=== PATIENT | male | born 2000 | race Caucasian/White ===

== ENCOUNTER 2018-10-28 00:54 | Emergency (ER) | payer OTHER ==
--- OUTSIDE RECORDS SUMMARY | 2018-10-28 01:12 | XMS REPORT | Continuity of Care Document ---
:2000 External Reference #:[id number] Author Name Noel Varghese M.D. Address [address] [place] [address] Care Team Providers Name Role Phone Noel Varghese M.D. 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 Payers Type Date Identification Numbers Payment Provider Subscriber Effective: Policy Number: [id number] [employer] // [employer] Kumar Cummins 2007 PayID: [id number] [id number] [place] [address] Advance Directives Description No Information Available Problems Description No Active Problems Family History Date Family Member(s) Problem(s) Comments General Family history of nocturnal enuresis on both side Social History Type Date Description Comments Sex Unknown General Lives with parents and 2 sibs Tobacco Use Start: Unknown Patient has never smoked Smoking Status Reviewed: 01/17/18 Patient has never smoked Allergies, Adverse Reactions, Alerts Description No Known Drug Allergies Medications Medication Date Status Form Strength Qnty SIG Indications Ordering Provider Ventolin HFA 09/25/ Active Aerosol 108(90Base 16gm 1-2 puffs Chidi Magaña 2018 ) mcg/Act with Artemio, spacer C.P.N.P. every 4-6 hours as needed Aerochamber 09/25/ Active Misc 2units use with Chidi Magaña Plus 2018 albuterol Artemio, inhaler C.P.N.P. Augmentin 09/25/ Hx Tablets 500-125mg 20tabs 1 tablet H66.93 Roseline Magaña 2017 - by mouth Artemio, 10/05/ twice a C.P.N.P. 2018 day, x 10 days No Active 12/05/ Hx Unknown Medications 2017 - 2017 Azithromycin 01/02/ Hx Tablets 250mg 6tabs 1 tab by J06.9 Noel 2017 - mouth Shrivasta 01/07/ twice a Juany benitez 2017 day day1, 1 tab by mouth daily for day 2-5 Azithromycin 04/03/ Hx Tablets 250mg 6tabs 2 tabs by 786.2 Jeanna 2014 - mouth x 1 Royal, 04/08/ then 1 by C.P.N.P. 2014 mouth every day x 4d Benzoyl 09/23/ Hx Gel 5% 60gm apply over 706.1 Noel Peroxide 2013 - face every Shrivasta 12/05/ at night Juany benitez 2017 Doxycycline 09/23/ Hx Capsules 100mg 60caps 1 by mouth 706.1 Noel Hyclate 2013 - bid. avoid Shrivasta 10/23/ sun. Take Juany benitez 2013 after food Cefdinir 03/17/ Hx Capsules 300mg 20caps 1 bid x 10 034.0 Ender Schroeder 2013 - days Lambert, 04/03/ Juany ROBERTS 2014 Amoxicillin 01/10/ Hx Tablets 875mg 20tabs 1 tablet 382.9 Estevan 2013 - twice Sharkness 01/24/ daily for , C.P.N.P 2013 10 days Omnicef 06/15/ Hx Capsules 300mg 14caps 1 capsule 382.9 Estevan 2011 - twice Sharkness 06/22/ daily for , C.P.N.P 2011 7 days Aldara 04/10/ Hx Cream 5% QS apply over 078.0 Noel 2008 - the wart Shrivasta 04/19/ qod for 1 Juany benitez 2008 month Amoxicillin 10/10/ Hx Suspension 400mg/5 ML QS 2 tsp po 034.0 Ana 2006 - bid x 10D Shaun, 10/20/ D.O. 2006 Amoxil 06/29/ Hx Chewtabs 400mg 8units 4 tab stat Noel 2006 - with oral Shrivasta 07/13/ injury Juany benitez 2006 Patria 05/01/ Hx Chewtabs 1.1mg 90unit 1 PO qd Noel No 2007 [facility]/ Juany benitez 2017 Immunizations CPT Code Status Date Vaccine Lot # [id number] Given 10/19/2016 HPV 9 Gardasil 9 [id number] 51149 Given 08/26/2016 Meningococcal A,C,Y,W135 (Menactra) [id number] Preservative Free 12645 Given 02/01/2010 Meningococcal A,C,Y,W135 (Menactra) [id number] Preservative Free 16588 Given 02/01/2010 TdaP Immunization Age 7+ [id number] 02601 Given 01/28/2009 Varicella (Chicken Pox) Immunization 1544x 94338 Given 01/09/2008 Hepatitis A Vaccine Pediatric/Adolescent 2 [id number] Dose Schedule 46938 Given 11/03/2006 Hepatitis A Vaccine Pediatric/Adolescent 2 [id number] Dose Schedule 22141 Given 12/02/2004 Flu Vaccine Age 3+Years 97878 Given 10/04/2004 Flu Vaccine Age 3+Years 10275 Given 12/26/2002 Poliomyelitis Immunization 15411 Given 12/26/2002 DTaP Immunization under age 7 68307 Given 12/26/2002 MMR Virus Immunization 07581 Given 12/07/1999 MMR Virus Immunization 99630 Given 12/07/1999 Poliomyelitis Immunization 66287 Given 12/07/1999 Varicella (Chicken Pox) Immunization 15240 Given 06/15/1999 DTaP Immunization under age 7 19306 Given 06/15/1999 Hib/Hep B Combination Vaccine 32813 Given 04/08/1999 DTaP Immunization under age 7 08515 Given 04/08/1999 Hib Vaccine 42321 Given 04/08/1999 Poliomyelitis Immunization 17597 Given 02/01/1999 Hib/Hep B Combination Vaccine 13320 Given 02/01/1999 Poliomyelitis Immunization 70874 Given 02/01/1999 DTaP Immunization under age 7 16159 Given 1998 Hepatitis B Imm Age 0 to 19yr 28055 Refused 01/17/2018 HPV 9 Gardasil 9 56114 Refused 01/17/2018 Flu Inj Quadrivalent .5ml Preserve Free 86317 Refused 10/07/2015 HPV 9 Gardasil 9 54475 Refused 10/07/2015 Meningococcal A,C,Y,W135 (Menactra) Preservative Free 49556 Refused 09/23/2014 HPV 4 Gardasil 4 81483 Refused 09/23/2014 Flu Mist Quadrivalent 89008 Refused 07/10/2013 HPV 4 Gardasil 4 08400 Refused 03/08/2012 HPV 4 Gardasil 4 Vital Signs Date Vital Result Comment 09/25/2018 4:11pm Weight 228.00 lb Weight 103.421 kg Weight Percentile >97th Body Temperature 98.5 F Heart Rate 93 /min O2 % BldC Oximetry 97 % 01/17/2018 1:56pm Height 70.25 inches 5'10.25" Height Percentile 60 % Weight 227.00 lb Weight 102.967 kg Weight Percentile >97th Heart Rate 71 /min Respiratory Rate 12 /min BP Systolic 133 mmHg BP Diastolic 75 mmHg BMI (Body Mass Index) 32.3 kg/m2 Body Mass Index Percentile 98 % 12/05/2017 2:17pm Weight 226.00 lb Weight 102.514 kg Weight Percentile >97th Body Temperature 98.5 F 01/02/2017 4:39pm Weight 210.00 lb w/clothes/no shoes Weight 95.256 kg Weight Percentile 96th Body Temperature 97.8 F Heart Rate 75 /min BP Systolic 136 mmHg BP Diastolic 80 mmHg Blood Pressure Percentile 0 % O2 % BldC Oximetry 90 % 10/19/2016 2:57pm Height 70 inches 5'10" Height Percentile 60 % Weight 210.62 lb Weight 95.540 kg Weight Percentile 97th Heart Rate 65 /min Respiratory Rate 12 /min BP Systolic 119 mmHg BP Diastolic 68 mmHg Blood Pressure Percentile 41 % BMI (Body Mass Index) 30.2 kg/m2 Body Mass Index Percentile 97 % 10/07/2015 3:10pm Height 70.25 inches 5'10.25" Height Percentile 68 % Weight 204.00 lb Weight 92.534 kg Weight Percentile 97th Heart Rate 55 /min BP Systolic 134 mmHg BP Diastolic 72 mmHg Blood Pressure Percentile 90 % BMI (Body Mass Index) 29.1 kg/m2 Body Mass Index Percentile 96 % 04/03/2015 3:16pm Weight 196.25 lb with sneakers Weight 89.019 kg Weight Percentile 97th Body Temperature 101.2 F Ibuprofen 8am Heart Rate 87 /min O2 % BldC Oximetry 97 % 04/01/2015 9:57am Weight 193.00 lb Weight 87.545 kg Weight Percentile 96th Body Temperature 99.6 F Heart Rate 96 /min O2 % BldC Oximetry 98 % 09/23/2014 3:18pm Height 70.25 inches 5'10.25" Height Percentile 77 % Weight 183.00 lb Weight 83.009 kg Weight Percentile 95th Heart Rate 64 /min Respiratory Rate 12 /min BP Systolic 131 mmHg BP Diastolic 68 mmHg Blood Pressure Percentile 88 % BMI (Body Mass Index) 26.1 kg/m2 Body Mass Index Percentile 92 % 03/17/2014 12:34pm Weight 181.50 lb Weight 82.328 kg Weight Percentile 96th Body Temperature 97.4 F 01/10/2014 4:20pm Weight 175.00 lb Weight 79.380 kg Weight Percentile 95th Body Temperature 99.4 F 07/10/2013 3:33pm Height 69.50 inches 5'9.50" Height Percentile 87 % Weight 163.00 lb Weight 73.937 kg Weight Percentile 93rd Heart Rate 64 /min Respiratory Rate 16 /min BP Systolic 130 mmHg BP Diastolic 70 mmHg Blood Pressure Percentile 90 % BMI (Body Mass Index) 23.7 kg/m2 Body Mass Index Percentile 87 % 06/15/2012 11:03am Weight 137.00 lb Weight 62.143 kg Weight Percentile 88th Body Temperature 98.9 F Blood Pressure Percentile 0 % 03/08/2012 2:56pm Height 66.25 inches 5'6.25" Height Percentile 89 % Weight 137.00 lb Weight 62.143 kg Weight Percentile 90th Heart Rate 68 /min Respiratory Rate 17 /min BP Systolic 124 mmHg BP Diastolic 60 mmHg Blood Pressure Percentile 85 % BMI (Body Mass Index) 21.9 kg/m2 Body Mass Index Percentile 84 % 10/27/2011 1:55pm Weight 130.00 lb Weight 58.968 kg Weight Percentile 89th Body Temperature 98.6 F Blood Pressure Percentile 0 % 04/27/2011 9:39am Weight 122.00 lb Weight 55.339 kg Weight Percentile 88th Body Temperature 97.9 F Blood Pressure Percentile 0 % 02/04/2011 3:35pm Height 61.5 inches 5'1.50" Height Percentile 78 % Weight 120.00 lb Weight 54.432 kg Weight Percentile 89th Heart Rate 100 /min Respiratory Rate 16 /min BP Systolic 120 mmHg BP Diastolic 72 mmHg Blood Pressure Percentile 85 % BMI (Body Mass Index) 22.3 kg/m2 Body Mass Index Percentile 90 % 02/01/2010 2:50pm Height 59 inches 4'11" Height Percentile 78 % Weight 103.00 lb Weight 46.721 kg Weight Percentile 87th Heart Rate 70 /min BP Systolic 116 mmHg BP Diastolic 70 mmHg Blood Pressure Percentile 81 % BMI (Body Mass Index) 20.8 kg/m2 Body Mass Index Percentile 87 % 12/28/2009 12:28pm Weight 101.50 lb Weight 46.040 kg Weight Percentile 87th Body Temperature 97.7 F Blood Pressure Percentile 0 % 01/28/2009 2:58pm Height 57.25 inches 4'9.25" Height Percentile 81 % Weight 91.00 lb Weight 41.278 kg Weight Percentile 90th Heart Rate 80 /min BP Systolic 100 mmHg BP Diastolic 68 mmHg BMI (Body Mass Index) 19.5 kg/m2 Body Mass Index Percentile 90 % 01/09/2008 3:42pm Height 54.75 inches 4'6.75" Height Percentile 79 % Weight 81.00 lb Weight 36.742 kg Weight Percentile 92nd Heart Rate 68 /min BP Systolic 110 mmHg BP Diastolic 62 mmHg BMI (Body Mass Index) 19.0 kg/m2 Body Mass Index Percentile 92 % 10/10/2007 12:21pm Weight 76.00 lb Weight 34.474 kg Weight Percentile 89th Body Temperature 97.2 F 06/05/2007 3:28pm Height 53.75 inches 4'5.75" Height Percentile 83 % Weight 76.00 lb Weight 34.474 kg Weight Percentile 93rd Body Temperature 96.6 F BMI (Body Mass Index) 18.5 kg/m2 Body Mass Index Percentile 91 % 11/03/2006 3:26pm Height 52.5 inches 4'4.50" Height Percentile 84 % Weight 72.00 lb with clothes, no shoes Weight 32.659 kg Weight Percentile 94th BP Systolic 98 mmHg BP Diastolic 60 mmHg BMI (Body Mass Index) 18.4 kg/m2 Body Mass Index Percentile 93 % Results Test Date Facility Test Result H/L Range Note Laboratory test 01/17/2018 [facility] .Hemoglobin in 16.6 finding (607)- - house Laboratory test 01/02/2017 [facility] .Flu Test in neg finding (607)- - house .Strep A, Rapid neg Laboratory test 10/19/2016 In [facility] .Hemoglobin in thompson 16.6 finding (607)- - Laboratory test 10/07/2015 In [facility] .Hemoglobin in thompson 15.3 finding (607)- - Laboratory test 09/23/2014 In [facility] Hemoglobin 14.8 finding (607)- - Laboratory test 03/17/2014 In [facility] .Throat Culture Quick positive finding (607)- - Strep Laboratory test 07/10/2013 In [facility] .Hemoglobin in thompson 14.5 finding (607)- - Laboratory test 03/08/2012 In [facility] .Urine dip - see nurse neg finding (607)- - note Laboratory test 03/08/2012 In [facility] Hemoglobin 13.3 finding (607)- - Laboratory test 10/27/2011 In [facility] Throat Culture negative finding (607)- - (Overnight) Throat Culture Quick Strep neg Laboratory test finding 02/04/2011 In [facility] .Urine dip - see nurse neg (607)- - note Laboratory test finding 02/04/2011 In [facility] Hemoglobin 12.6 (607)- - Laboratory test finding 02/01/2010 In [facility] .Urine dip - see nurse neg (607)- - note Laboratory test finding 02/01/2010 In [facility] .Urine dip - see nurse neg (607)- - note Laboratory test finding 02/01/2010 In [facility] Hemoglobin 12.4 (607)- - Laboratory test finding 01/28/2009 In [facility] .Urine dip - see nurse neg (607)- - note Laboratory test finding 01/28/2009 In [facility] Hemoglobin 14.3 (607)- - Laboratory test finding 01/09/2008 In [facility] .Urine dip - see nurse neg (607)- - note Laboratory test finding 01/09/2008 In [facility] Hemoglobin 14.2 (607)- - Laboratory test finding 10/10/2007 In [facility] .Throat Culture Quick positive (607)- - Strep Laboratory test finding 11/03/2006 In [facility] Hemoglobin 12.2 (607)- - Procedures Date Code Description Status 01/15/2004 09770 Remove Impacted Cerumen with instrumentation Completed Encounters Type Date Location Provider Dx Diagnosis Office Visit 09/25/2018 [facility] Office Roseline Ulloa, H66.93 Otitis media, 4:15p C.P.N.P. unspecified, bilateral R05 Cough Office Visit 01/17/2018 2:00p [facility] Noel Varghese, Z00.01 Encounter for M.D. general adult medical exam w abnormal findings E66.9 Obesity, unspecified S43.82xA Sprain of oth parts of left shoulder girdle, init encntr Office Visit 12/05/2017 2:15p [facility] Estevan Rivers, M25.512 Pain in left C.P.N.P shoulder Office Visit 01/02/2017 4:30p [facility] Noel Varghese, J06.9 Acute upper M.D. respiratory infection, unspecified Office Visit 10/19/2016 2:45p [facility] Noel Varghese, Z00.129 Encntr for routine M.D. child health exam w/o abnormal findings L80 Vitiligo Office Visit 10/07/2015 3:00p [facility] Noel Varghese, Z00.129 Encntr for M.D. routine child health exam w/o abnormal findings Office Visit 04/03/2015 3:15p [facility] Office Jeanna Sauceda, 786.2 Cough C.P.N.P. Office Visit 04/01/2015 10:00a [facility] Jeanna Sauceda, 786.2 Cough C.P.N.P. Office Visit 09/23/2014 3:30p Main Office Noel Varghese, V20.2 Routine Infant M.D. Or Child Health Check 706.1 Acne Other 709.01 Vitiligo Office Visit 03/17/2014 12:45p Main Office Ender Mccarty, 034.0 Streptococcal Sore III, M.D. Throat Office Visit 01/10/2014 4:15p [facility] Estevan 465.9 URI Upper Silvestre, Respiratory C.P.N.P Infections Acute Unspec Sites 382.9 Otitis Media Unspec Office Visit 07/10/2013 3:30p Main Office Noel Varghese, V20.2 Routine M.D. Or Child Health Check 709.01 Vitiligo Office Visit 06/15/2012 11:15a Main Office Estevan Rivers, 465.9 URI Upper C.P.N.P Respiratory Infections Acute Unspec Sites 382.9 Otitis Media Unspec Office Visit 03/08/2012 3:00p [facility] Office Noel Varghese, V20.2 Routine M.D. Or Child Health Check 709.01 Vitiligo Office Visit 10/27/2011 2:00p [facility] Zain Butcher, 079.99 Viral Infection M.D. Unspec Office Visit 04/27/2011 9:45a [facility] Office Noel Varghese, 959.5 Injury Finger M.D. Other & Unspec Office Visit 02/04/2011 3:30p [facility] Office Noel Varghese, V20.2 Routine Or M.D. Child Health Check 008.69 Enteritis Due To Other Viral Enteritis 368.00 Amblyopia Unspec Office Visit 02/01/2010 3:00p [facility] Office Noel Varghese, V20.2 Routine Infant Or M.D. Child Health Check Office Visit 12/28/2009 12:45p [facility] Office Ender Mccarty, 787.01 Nausea W/ III, M.D. Vomiting Office Visit 04/10/2009 4:00p [facility] Office Noel Varghese, 078.0 Molluscum M.D. Contagiosum Office Visit 01/28/2009 3:00p [facility] Office Noel Varghese, V20.2 Routine Or M.D. Child Health Check 709.01 Vitiligo 788.36 Incontinence Nocturnal Enuresis Office Visit 01/09/2008 [facility] Office Noel Varghese, V20.2 Routine Infant Or 3:30p M.D. Child Health Check Office Visit 10/10/2007 [facility] Office Ana Dunn, 034.0 Streptococcal Sore 12:30p D.O. Throat Office Visit 06/05/2007 [facility] Office Ana Dunn, 709.01 Vitiligo 3:15p D.O. Office Visit 11/03/2006 [facility] Office Noel Varghese, V20.2 Routine Infant Or 3:30p M.D. Child Health Check V05.8 Single Disease Spec Other Vaccination & Inoculation Office Visit 01/26/2006 [facility] Office Noel Varghese, V20.2 Routine Infant Or 3:00p M.D. Child Health Check Office Visit 11/22/2005 [facility] Office Noel Varghese, 463 Tonsillitis Acute 9:45a M.D. Office Visit 01/17/2005 Main Office Ana Dunn, 463 Tonsillitis Acute 4:45p D.O. Office Visit 01/14/2005 Main Office Ana Dunn, 079.99 Viral Infection 12:30p D.O. Unspec Office Visit 12/30/2004 [facility] Office Noel Halima, V20.2 Routine Infant Or 3:30p M.D. Child Health Check Office Visit 12/14/2004 [facility] Office Noel Varghese, 382.9 Otitis Media Unspec 2:30p M.D. Office Visit 02/11/2004 [facility] Office Jeanna Sauceda, 034.0 Streptococcal Sore 4:15p C.P.N.P. Throat Office Visit 01/15/2004 [facility] Office Noel Varghese, 380.4 Impacted Cerumen 4:00p M.D. Office Visit 12/29/2003 [facility] Office Noel Varghese, V20.2 Routine Infant Or 3:30p M.D. Child Health Check Office Visit 09/30/2003 [facility] Office Ender CotaFrida Mccarty, 684 Impetigo 4:15p III, M.D. Office Visit 12/26/2002 [facility] Office Noel Halima, V20.2 Routine Infant Or 2:15p M.D. Child Health Check Office Visit 12/04/2001 [facility] Office Noel Varghese, 3:30p M.D. [facility] 11:15[facility]. Plan of Treatment 09/25/2018 - Roseline Ulloa, C.P.N.P.H66.93 Otitis media, unspecified, bilateralNew Medication:Augmentin 500-125 mg - 1 tablet by mouth twice a day, x 10 daysComments:Discussed with patient, will treat with abx. Take with food and increase probiotic intake such as yogurt.Continue with symptomatic care, fluids , rest, promote nasal drainage, humidified air, Tylenol orMotrin PRN for pain or fever. Should start to see improvement in 2-3 days. Call as needed.Follow up: as needed for new or worsening [id number] CoughNew Medication:Ventolin HFA 108( 90 Base) mcg/Act - 1-2 puffs with spacer every 4-6 hours as neededAerochamber Plus - use with albuterol inhalerComments:Discussed cough, will order inhaler. Monitor and call as needed for new or worsening symptoms.
[2018-10-28] MEDS ORDERED: NS 0.9% 1000 ML*IV.FLUID IV ONE (02:12)
[2018-10-28] MEDS ORDERED: Acetaminophen TAB* 325 MG PO ONE (02:13)
[2018-10-28] MEDS ORDERED: Ketorolac INJ* 30 MG/ML 1 ML VIAL IV PUSH ONE (02:13)
--- NOTE | 2018-10-28 02:27 | ED ---
Complex/Multi-Sys Presentation - HPI Summary HPI Summary: This patient is a 17 year old M presenting to ED with a chief complaint of fever since 3 days ago. The patient rates the pain 7/10 in severity. Symptoms aggravated by nothing. Symptoms alleviated by nothing. Patient reports N/V, sore throat, SALGUERO, and cough. Last took Tylenol at 1720. - History Of Current Complaint Chief Complaint: EDFever Time Seen by Provider: 10/28/18 02:05 Hx Obtained From: Patient Onset/Duration: Sudden Onset, Lasting Days, Still Present Timing: Constant, Days Severity Currently: Moderate Severity Initially: Moderate Aggravating Factor(s): nothing Alleviating Factor(s): nothing Associated Signs And Symptoms: Positive: Headache, Cough, Nausea, Vomiting, Other - sore throat, cough - Allergies/Home Medications Allergies/Adverse Reactions: Allergies Allergy/AdvReac Type Severity Reaction Status Date / Time No Known Allergies Allergy Verified 10/28/18 01:05 PMH/Surg Hx/FS Hx/Imm Hx Endocrine/Hematology History: Denies: Hx Diabetes Cardiovascular History: Denies: Hx Coronary Artery Disease Infectious Disease History: No Infectious Disease History: Denies: Traveled Outside the [place] in Last 30 Days - Family History Known Family History: Negative: Cardiac Disease, Hypertension, Diabetes - Social History Alcohol Use: Rare Substance Use Type: Reports: None Smoking Status (MU): Never Smoked Tobacco Review of Systems Positive: Fever Positive: Sore Throat Positive: Cough Positive: Vomiting, Nausea Positive: Headache All Other Systems Reviewed And Are Negative: Yes Physical Exam - Summary Physical Exam Summary: VITAL SIGNS: Reviewed. GENERAL: Patient is a well-developed and nourished MALE who is lying comfortable in the stretcher. Patient is not in any acute respiratory distress. HEAD AND FACE: No signs of trauma. No ecchymosis, hematomas or skull depressions. No sinus tenderness. EYES: PERRLA, EOMI x 2, No injected conjunctiva, no nystagmus. EARS: Hearing grossly intact. Ear canals and tympanic membranes are within normal limits. MOUTH: Pharyngeal erythema and no exudate. NECK: Supple, trachea is midline, no adenopathy, no JVD, no carotid bruit, no c- spine tenderness, neck with full ROM. CHEST: Symmetric, no tenderness at palpation LUNGS: Clear to auscultation bilaterally. No wheezing or crackles. CVS: Regular rate and rhythm, S1 and S2 present, no murmurs or gallops appreciated. ABDOMEN: Soft, non-tender. No signs of distention. No rebound no guarding, and no masses palpated. Bowel sounds are normal. EXTREMITIES: FROM in all major joints, no edema, no cyanosis or clubbing. NEURO: Alert and oriented x 3. No acute neurological deficits. Speech is normal and follows commands. SKIN: Dry and warm Triage Information Reviewed: Yes Vital Signs On Initial Exam: Initial Vitals Temp Pulse Resp BP Pulse Ox 97.8 F 130 18 147/78 95 10/28/18 00:57 10/28/18 00:57 10/28/18 00:57 10/28/18 00:57 10/28/18 00:57 Vital Signs Reviewed: Yes Diagnostics - Vital Signs Vital Signs Temp Pulse Resp BP Pulse Ox 10/28/18 02:09 103 F 10/28/18 00:57 97.8 F 130 18 147/78 95 - Laboratory Result Diagrams: 10/28/18 02:22 10/28/18 02:22 Lab Statement: Any lab studies that have been ordered have been reviewed, and results considered in the medical decision making process. - Radiology CXR Radiology Interpretation Completed By: ED Physician Summary of Radiographic Findings: CXR is negative. Pending radiologist official report. Re-Evaluation - Re-Evaluation First Eval Re-Evaluation Time: 04:07 Change: Improved Comment: Patient is feeling better. Complex Multi-Symp Course/Dx Assessment/Plan: This patient is a 17 year old M presenting to ED with a chief complaint of fever since 3 days ago. In the ED course, the patient was given Tylenol, Toradol, and fluids. CXR is negative. This patient will be discharged. Patient understands and agrees. - Diagnoses Provider Diagnoses: Rhabdomyolysis, Viral syndrome Discharge - Sign-Out/Discharge Documenting (check all that apply): Patient Departure - discharge - Discharge Plan Condition: Stable Disposition: HOME Prescriptions: Ibuprofen TAB* [Motrin TAB* 800 MG] 800 mg PO Q6H PRN #30 tab PRN Reason: Fever/Pain Patient Education Materials: Rhabdomyolysis (ED), Viral Syndrome (ED) Forms: *School Release Referrals: Joey Varghese MD [Primary Care Provider] - (Follow up in 1-2 days.) Additional Instructions: RETURN TO THE EMERGENCY DEPARTMENT FOR CHANGING OR WORSENING SYMPTOMS. FOLLOW UP WITH PCP IN 1-2 DAYS. - Attestation Statements Document Initiated by Scribe: Yes Documenting Scribe: Randolph Beckett Provider For Whom Scribe is Documenting (Include Credential): Gabby Benitez MD Scribe Attestation: Randolph Calderón, scribed for Gabby Benitez MD on 10/28/18 at 0457. Status of Scribe Document: Ready
[2018-10-28 02:31] LABS: Hematocrit 43 % (42-52); Hemoglobin 14.6 g/dl (14.0-18.0); Mean Corpuscular HGB Conc 34 g/dl (31-36); Mean Corpuscular Hemoglobin 29 pg (27-31); Mean Corpuscular Volume 85 fL (80-94); Mean Platelet Volume 8.7 fL (7.4-10.4); Platelet Count 230 10^3/ul (150-450); Red Blood Count 5.05 10^6/ul (4.00-5.40); Red Cell Distribution Width 13 % (10.5-15)
[2018-10-28 02:41] LABS: INR 1.26 (0.77-1.02)
[2018-10-28 02:50] LABS: EGFR Non-African American 81.1 (>60)
[2018-10-28 02:55] LABS: ABS Basophils 0.1 10^3/ul (0-0.2); ABS Eosinophils 0 10^3/ul (0-0.6); ABS Lymphocytes 1.5 10^3/ul (1.0-4.8); ABS Monocytes 1.6 10^3/ul (0-0.8); ABS Neutrophils 9.8 10^3/ul (1.5-7.7); ABS Nucleated RBC 0 10^3/ul; Eosinophil % 0.1 %; Lymphocyte % 11.8 %; Nucleated Red Blood Cells % 0
[2018-10-28 04:22] LABS: Urine Appearance Clear; Urine Blood Negative (Negative); Urine Color Yellow; Urine Ketones Negative (Negative); Urine Protein Negative (Negative); Urine Specific Gravity 1.009 (1.010-1.030); Urine Urobilinogen Positive (Negative)
[2018-10-28 05:19] VITALS: BP 121/65
== END 2018-10-28 05:18 | disposition home or self-care (01) ==
LOC: ED 00:54
DX: M62.82 Rhabdomyolysis (principal); B34.9 Viral infection, unspecified
CPT/HCPCS: 36415; 71045; 80053; 81003; 82550; 83605; 85025; 85610; 85730; 86140; 86308; 87040; 87651; 96361; 96374; 99283; A9270-GY; J1885